=== PATIENT | female | born 1995 | race Hispanic/Latino ===

== ENCOUNTER 2017-07-31 02:29 | Inpatient (IN) | payer MEDICAID ==
[~2017-07-31] VITALS: Ht 165.1 cm; Wt 67.1 kg
[2017-07-31] MEDS ORDERED: Oxytocin 30 Units/500 mL LR 30 UNITS in IV Premix 1 EACH IV PRN ×2 (03:50→11:20)
[2017-07-31] MEDS ORDERED: Methylergonovine 0.2 mg/mL Inj IM PRN ×2 (03:50→11:20)
[2017-07-31] MEDS ORDERED: fentaNYL-PF 50 mCg/mL 2 mL Inj IVPUSH PRN (03:50)
[2017-07-31] MEDS ORDERED: Sodium Chloride LOK Flush 10 mL Syringe IVFLUSH PRN (03:50)
[2017-07-31] MEDS ORDERED: Lactated Ringer's 1,000 ML IV PRN (03:50)
[2017-07-31] MEDS ORDERED: Hemorrhage Kit, Post Partum XX ONE ×2 (03:50→11:20)
[2017-07-31] MEDS ORDERED: Oxytocin 10 Unit/mL Inj IM PRN ×2 (03:50→11:20)
[2017-07-31] MEDS ORDERED: Carboprost 250 mCg/mL Inj IM PRN ×2 (03:50→11:20)
[2017-07-31] MEDS ORDERED: Ondansetron 2 mg/mL 2 mL Inj IVPUSH PRN (03:50)
[2017-07-31 05:15] LABS: Mean Corpuscular Hemoglobin 28.5 pg (27.0-35.0); Mean Corpuscular Volume 85.2 fL (81-100)
[2017-07-31] MEDS ORDERED: Lactated Ringer's 500 ML IV ONE (06:06)
[2017-07-31] MEDS ORDERED: Lactated Ringer's 1,000 ML IV SCH ×2 (06:06→11:20)
--- NOTE | 2017-07-31 06:06 | PCM.HPANE ---
Patient Data Surgeon Admitting Provider:Gamal Schneider MD Attending Provider:Gamal Schneider MD Primary Care Physician:Nopjona Other Provider:Jeffery lAlan Anesthesia Reason for Visit Active Labor Ht/WT & BMI Body Mass Index Allergies Coded Allergies: No Known Allergies (Unverified , 07/31/17) Stop/Bang Risk Assessment Category Category 1A: Patient has history of documented sleep apnea, and HAS NOT received any narcotic, sedative or anesthesia administration during this stay. Category 1B: Patient has history of documented sleep apnea, and HAS received any narcotic , sedative or anesthesia administration during this stay Category 2: Patient has SUSPECTED Obstructive Sleep Apnea, and HAS received any narcotic , sedative or anesthesia administration during this stay. Category 3: Patient has SUSPECTED Obstructive Sleep Apnea and HAS NOT received narcotic, sedative or anesthesia administration during this stay. Category 4: Outpatient in Procedural Areas with known sleep apnea or who screen positive for High Risk via the STOP/BANG questionnaire. Meds/Labs/Diagnostics Labs Test 07/31/17 05:00 White Blood Count 13.2th/mm3 (3.8-10.1) Red Blood Count 4.52mil/mm3 (3.90-5.20) Hemoglobin 12.9g/dL (12.0-15.6) Hematocrit 38.5% (35.0-46.0) Mean Corpuscular Volume 85.2fL (81-100) Mean Corpuscular Hemoglobin 28.5pg (27.0-35.0) Mean Corpuscular Hemoglobin Concent 33.5% (32.0-37.0) Red Cell Distribution Width 14.7% (12.3-15.4) Platelet Count 234bil/L (150-400) Plan Impression Patient chart reviewed, patient interviewed and anesthestic plan with risks, benefits, and alternatives discussed, and informed consent obtained. Cody Boykin MD Jul 31, 2017 06:06
[2017-07-31] MEDS ORDERED: EPHEDrine Sulfate 50 mg/mL Inj IVPUSH PRN (06:10)
[2017-07-31] MEDS ORDERED: Atropine 1 mg/10 mL (Code) Syringe IVPUSH PRN (06:10)
[2017-07-31] MEDS ORDERED: fentaNYL 2 mCg/mL-Bupiv 0.125% 100 ML EPIDURAL SCH (06:10)
--- NOTE | 2017-07-31 08:23 | HP ---
[address] [address] HISTORY AND PHYSICAL PATIENT: VIOLET SHIELDS : 1995 MR#: [id number] ADMIT: 07/31/2017 JOB ID: [id number] DATE OF ADMISSION: 07/31/2017 HISTORY OF PRESENT ILLNESS: The patient is a 21-year-old, 2, para 1, who presents to labor and delivery with complaint of contractions that started at 9 p.m. July 30, 2017. The patient's estimated due date is August 12, 2017. She is 38 weeks and 4 days . She had care in [facility], limited care with [facility]. heart rate tracing is reactive, category 1, baseline 140 beats per minute. No decelerations. The patient is having contractions every 2-3 minutes. The patient presented to labor and delivery at 2 o'clock in the morning of July 31, 2017 and had spontaneous rupture of membranes at 2:30 a.m. July 30, 2017. Clear amniotic fluid. The cervical finding at 2:30 a.m. was 2 cm, 50% effacement, station -2. Four hours later at 6 a.m. the patient is 4 cm dilated, 90% effaced, station 0, clear amniotic fluid. She has had a recent outbreak of oral herpes. On exam, no signs of genital herpes were identified in the canal. labs were reviewed. She is blood group and type O positive, rubella equivocal, varicella immune. Group B strep negative. Antibody negative. ALLERGIES: NKDA. FAMILY AND MEDICAL HISTORY: Noncontributory. PHYSICAL EXAMINATION: Vital signs: Blood pressure 116/75, pulse 81 respiratory rate 20, temperature 36.8. General: Awake, alert, oriented x3 in no apparent distress. HEENT: PERRLA. Lungs: Good respiratory effort, clear. Cardiovascular system: Regular rate and rhythm. Abdomen: Gravid, tender with contractions, nondistended. Extremities: No pitting edema. SHEET ROCK APPLIER exam: Dilation 4 cm, effacement 90%, station 0. Rupture of membranes: Clear amniotic fluid. Positioning of the cervix, posterior. ASSESSMENT AND PLAN: The patient is a 21-year-old, 2, para 1, at 38 plus weeks by the first dating scan, in active labor, being admitted to labor and delivery. She had spontaneous rupture of membranes, clear amniotic fluid. Good contractions. IV hydration started with lactated Ringer at 125 mL/h. The patient has history significant for late transfer of care. Incomplete anatomy on first ultrasound. Initial estimated weight was 12 percentile. Repeat one done yesterday showed estimated weight in more than 40 percentile. She had a history of Escherichia coli urinary tract infection that was diagnosed on July 07, 2017. Test of cure testing was negative. She registered for care at [address] [facility]. Her corrected SREEKANTH was July 31, 2017, which makes her 40 weeks today. labs were sent. The progress of labor is adequate. We will anticipate spontaneous vaginal delivery.
[2017-07-31] MEDS ORDERED: Benzocaine (Dermoplast) 20% 60 Gm Spray TOPICAL PRN (11:20)
[2017-07-31] MEDS ORDERED: Measles-Mumps-Rubella Vaccine 0.5 mL Inj SUBQ ONE (11:20)
[2017-07-31] MEDS ORDERED: LANOlin HPA 7 Gm Ointment TOPICAL PRN (11:20)
[2017-07-31] MEDS ORDERED: Witch Hazel-Glycerin Pads TOPICAL PRN (11:20)
[2017-07-31] MEDS ORDERED: Influenza (Adult) Vaccine 0.5 mL Syringe IM ONE (11:20)
[2017-07-31] MEDS ORDERED: TdaP Vaccine 0.5 mL Inj IM ONE (11:20)
--- NOTE | 2017-07-31 11:51 | PCM.OBVAG ---
Vaginal Delivery Date of Service Jul 31, 2017 Pre Operative Diagnosis Pre Operative Diagnosis at term 40 weeks 0 days, in active labor Post Operative Diagnosis Post Operative Diagnosis without complication of now at term 40 weeks 0 days, in active labor Procedure Procedure: at term 40 weeks 0 days Obstetical Procedure: Normal Spontaneous Vaginal Delivery Concrete Form Setter/Secretarial Stenographer Provider and Secretarial Stenographer: Dr. Yonathan Hernandez MD. Attending, Dr. Sagar Brown DO R3 Indication for Procedure Indication for Procedure Term gestation in active labor Induction: Active labor, Pitocin augmentation, Progressed normally through labor (brief) Findings Obstetrical Findings: (Female) Analgesia/Medications Obstetrical Anesthesia: Epidural Procedure Details Procedure Details This 21 y/o Khmer speaking now at 40 weeks and 0 days with hx of primary oral HSV but otherwise healthy mother with no gestational complications presented in active labor to [facility] with FTS 130's/minimal to moderate variability/+ accelerations/negative decelerations, with SVE of 1-2/70%/-3 with mccoy score of 4 progressed to slowly initially and had episodes of early decelerations just prior to delivery. Mother was checked and had progressed to 6-7 cm dilation/90% and zero station. scalp electrode was placed and showed bradycardia of 105, mother was placed on her left lateral recumbent position and FHT improved to 130's. Rhythm strip showed good beat to beat variability with baseline in from 105 to 130's and mixed early and late decels that were not prolonged. Within 5 minutes cervix was complete and mother began to push. Mother quickly delivered the head without nuchal cord, followed by the anterior shoulder, then posterior shoulder, and delivered a live born female . Baby was placed skin to skin with mother, and cord clamping was delayed for 1 minute. Cord was then clamped and cut by physician. Cord blood was taken. The placenta then delivered intact approximately 5 minutes later. EBL was 150 cc. The placenta was intact and 3 vessel cord was present. Pitocin was started and mother did well immediately post delivery without complications. SROM was at 0335 on 07/31/2017 and was clear. IV Intake/Output Catheters: None Blood Loss & Administration Estimated Blood Loss: 150 Post Procedure Plan Post delivery Condition: Mom stable VTE Prophylaxis: Sagar Aguirre DO Jul 31, 2017 11:51
[2017-07-31] MEDS ORDERED: .Epic Conversion Completed XX PRN (18:20)
[2017-07-31] MEDS ORDERED: oxyCODONE-Acetamin 5-325 mg Tablet PO PRN (21:05)
== END 2017-08-01 01:22 | disposition admitted as inpatient to this hospital (09) | DRG 951 ==
LOC: FBCO 02:29 → FBC 03:45
PROVIDERS: ADMIT Legal Medicine; ATTEND Legal Medicine
DX: R69 Illness, unspecified (principal)